=== PATIENT | female | born 2000 | race Caucasian/White ===

== ENCOUNTER → 2022-08-09 09:39 | Outpatient (CLI) | payer OTHER, SELFPAY ==
[2022-08-09 11:16] LABS: COVID19 -Nasal RAPID Negative (Negative)
== END ==
PROVIDERS: Referring Provider Chiropractor; Visit Provider Chiropractor
DX: Z20.822 Contact with and (suspected) exposure to COVID-19 (principal)
CPT/HCPCS: 87635; C9803

== ENCOUNTER → 2022-08-09 09:57 | Outpatient (CLI) | payer OTHER, SELFPAY ==
--- NOTE | 2022-08-09 | DI.RAD.S_ITS ---
PROCEDURE: XR CHEST 2V INDICATIONS: SHORTNESS OF BREATH TECHNIQUE: 2 views of the chest were acquired. COMPARISON: None. FINDINGS: Surgical changes and devices: None. Lungs and pleura: Lungs are clear. No pleural effusions or pneumothorax. Mediastinum: Mediastinal contours are normal. Heart size is normal. Bones and chest wall: No suspicious bony abnormalities. Soft tissues appear unremarkable. IMPRESSION: Normal chest x-ray Dictated by: Cristobal Greenwood M.D. on 08/09/2022 at 12:59 Approved by: Cristobal Greenwood M.D. on 08/09/2022 at 13:00
--- NOTE | 2022-08-14 10:35 | PM.PFT.1 ---
Pulmonary Function Test Referral & Results Date Patient Seen: 08/09/22 Requesting provider: Mason Fields Results: The spirometry demonstrates an FVC of 3.70 L which is 94% of predicted. The FEV1 was measured at 3.04 L which is 89% of predicted. The FEV1/FVC ratio was 82 which is 95% of predicted. Following the administration of bronchodilator there was a 21% improvement in FEF 25-75%. Interpretation: This study demonstrates probably normal forced spirometry. There is evidence however of minimal improvement in small airway flow post bronchodilator based on improvement in FEF 25-75% as above. This may suggest very minimal obstructive lung disease Clinical correlation suggested
== END ==
PROVIDERS: Referring Provider Chiropractor; Visit Provider Chiropractor
DX: R06.02 Shortness of breath (principal); Z20.822 Contact with and (suspected) exposure to COVID-19
CPT/HCPCS: 71046; 87635; 94060; C9803